=== PATIENT | male | born 2000 | race Caucasian/White ===

== ENCOUNTER 2023-12-04 12:33 | Emergency (ER) | payer OTHER, SELFPAY ==
[2023-12-04 12:38] VITALS: BP 126/71; PULSE 94; O2SAT 98
[2023-12-04 12:40] VITALS: BP 107/47; PULSE 90; RESP 18; TEMP 36.6; O2SAT 95; BMI 28.9
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
--- NOTE | 2023-12-04 12:57 | PC.NURSE ---
declined all labs/tests other than ecg, cleopatra notified pt wants to leave ama. pt is alert, standing and walking well after md removed collar. no resp distress
[2023-12-04 13:21] VITALS: BP 107/47; PULSE 90; RESP 18; TEMP 36.6; O2SAT 95
--- NOTE | 2023-12-04 13:23 | PC.NURSE ---
requested to leave AMA- risks explained by MD Darnell Herrera. Pt alert, oriented x4, acting appropriately, answering all questions well, walking steadily, speech clear, PRRLA. No pain
--- NOTE | 2023-12-04 13:33 | PC.NURSE ---
signed ama form, placed in file bin w d/c papers, md cleopatra ray went over ama
== END 2023-12-04 13:33 | disposition home or self-care (01) ==
PROVIDERS: Emergency Provider Student in an Organized Health Care Education/Training Program
DX: S80.211A Abrasion, right knee, initial encounter (principal); V47.5XXA Car driver injured in collision with fixed or stationary object in traffic accident, initial encounter; Y93.9 Activity, unspecified; Y92.410 Unspecified street and highway as the place of occurrence of the external cause; Y99.9 Unspecified external cause status
CPT/HCPCS: 93005; 99283; 99284

== ENCOUNTER → 2023-12-04 12:44 | Outpatient (BNV) | payer OTHER, SELFPAY | PROVIDERS: Emergency Provider Student in an Organized Health Care Education/Training Program; Visit Provider Internal Medicine | DX: R40.0 Somnolence (principal) | CPT/HCPCS: 93010 ==